=== PATIENT | female | born 1980 | race Caucasian/White ===

== ENCOUNTER 2024-12-01 15:10 | Emergency (ER) | payer BC, SELFPAY ==
[2024-12-01 15:20] VITALS: BP 154/94; PULSE 83; RESP 18; TEMP 36.3; O2SAT 100; BMI 21.5
--- OUTSIDE RECORDS SUMMARY | 2024-12-01 16:51 | XMS_ITS | Clinical Summary ---
Author Organization [facility] Address [address] [place] [id number] Care Team Providers Care Transportation Mechanic Name Role Phone [place] Primary Care Provider + Allergies No known active allergies Medications trimethoprim-sul famethoxazole 160-800 mg tabIndications:s kin and skin structure infection Take 1 Tablet by mouth two times daily for 7 days. 14 Tablet 11/30/2024 Active Encounters Date Type Department Care Team Description 11/30/2024 9:19 PM CDT - 11/30/2024 10:08 PM CDT Emergency [facility] [address] [place] [address] Vini Narayan PA Cellulitis and abscess of head (Primary Dx) Discharge Disposition: Home Self Care 11/30/2024 Travel from Last 3 Months Social History Tobacco Use Types Packs/Day Years Used Date Smoking Tobacco: Never Assessed Interpersonal Safety Answer Date Record ed Are you being hit, kicked, p ushed or yelled at (see row info)? No 11/30/2024 Interpersonal Safety Abuse 12 - 18 Not on file 11/30/2024 Interpersonal Safety Ambulatory Vulnerability No t on file 11/30/2024 Comments No Sex and Gender Information Value Date Recorded Sex Assigned at Female 11/30/2024 9:28 PM CDT Legal Sex Female 9:13 PM CDT Gender Identity Female 11/30/2024 9:28 PM CDT Sexual Orientation Straight 11/30/2024 9: 28 PM CDT Last Filed Vital Signs Vital Sign Reading Time Taken Comments Blood Pressure 144/106 11/30/2024 9:17 PM CDT Pulse 78 11/30/2024 9:17 PM CDT Temperature 36.8 C (98.3 F) 11/30/2024 9:17 PM CDT Respiratory Rate 20 11/30/2024 9:17 PM CDT Oxygen Saturation 99% 11/30/2024 9:17 PM CDT Inhaled Oxygen Concentration - - Weight 57 kg (125 lb 11.2 oz) 11/30/2024 9:17 PM CDT Height 162.6 cm (5' 4) 11/30/2024 9:17 PM CDT Body Mass Index 21.58 11/30/2024 9:17 PM CDT Plan of Treatment Not on file Procedures Procedure Name Priority Date/Time Associated Diagnosis Comments BEDSIDE US STUDY ARCHIVE Routine 11/30/2024 9:44 PM CDT from Last 3 Months Insurance SONU BOU[place]REAUX [id number] [facility] Care Teams Transportation Mechanic Relationship Specialty Start Date End Date [facility] Sonu Boudreaux [address] [place]ON[place] [id number] PCP - General 11/30/24
--- OUTSIDE RECORDS SUMMARY | 2024-12-01 16:51 | XMS_ITS | Continuity of Care Document ---
Author Organization [facility] Address [address] [place] [address] Phone Care Team Providers Care Shop Mechanic Name Role Phone Annabella Morales CNP Unavailable Unavailable Allergies, Adverse Reactions, Alerts Substance Reaction Status Criticality No Known Allergies Active No Inform ation Medications Medication Instructions Dosage Effective Dates (start - stop) Status Comments bupropion HCl XL 300 mg 24 hr tablet, extended release take 1 tablet by oral route every day 300 MG - Active Lamictal 200 mg tablet take 1 tablet by oral route every day 200 MG - Active doxepin 10 mg capsule take 1 capsule by oral route every day 10 MG - Active clonidine 0.2 mg/24 hr weekly transdermal patch apply 1 patch by transdermal route every week 1.00 patch - Active clonazepam 0.5 mg tablet take 2.5 (1.25MG) by oral route every day 1.25 MG - Active PRN gabapentin 300 mg capsule take 1 capsule by oral route 4 times every day begin with 1 capsule at bedtime x 3 then bid x 3 then tid 300 MG - Active Procedures Procedure Date No Show Visit Fee No Show Visit Fee Inject, Spine, Cerv/Thor, Epi/subarc w/i mg Guid Inject, Spine, Cerv/Thor, Epi/subarc w/i mg Guid Therapeutic Exercise Therapeutic Exercise No Show Visit Fee Manual Therapy Therapeutic Exercise No Show Visit Fee PT Eval - Low Complexity Manual Therapy Est Pt Eval 25 Min No Show Visit Fee Inject, Spine, Cerv/Thor, Epi/subarc w/i mg Guid Inject, Spine, Cerv/Thor, Epi/subarc w/i mg Guid Methylprednisolone Acetate-40 9 Est Pt Eval 25 Min No Show Visit Fee No Show Visit Fee Inject, Spine, Cerv/Thor, Epi/subarc w/i mg Guid Methylprednisolone Acetate-40 9 Inject, Spine, Cerv/Thor, Epi/subarc w/i mg Guid Psychiatric Diagnostic Evaluation Est Pt Eval 25 Min Advance Directives Directive Yes / No Effective Date File Name No Information Encounters Encounter Description Practice Location Reason(s) For Visit Diagnoses Date Provider Providers Copied on Encounter ANALI Streeter, [address], [place], [place], [id number], [place] tel:[phone] [facility] No Information 2 Ketola Bulloch. [address], [facility] [place], [id number], [place]. tel:[phone] Referring Provider: Sandra Spicer, [address], [place], [address] . tel:[phone] ANALI Streeter, [address], [place], [place], [address], [place] tel:[phone] [facility] No Information 2 Ketola Bulloch. [address], [facility], [address], [place]. tel:[phone] Referring Provider: Sandra Spicer, [address], [place], [address] . tel:[phone] [facility], [address], [place], [address], [place] tel:[phone] [facility] bilateral neck pain (chief complaint) Radiculopathy, cervical regionRadiculopathy , cervical region 2 [facility]. [address], [place], [place], [address], [place]. tel:[phone] Referring Provider: Artem Julien, [address], [place], [address]. tel:[phone] [facility], [address], [place], [place], [address], [place] tel:[phone] [facility] No Information 2 Wily Mcgill. [address], [place], [address], [place]. tel:[phone] Referring Provider: Artem Julien, [address], [place], [address]. tel:[phone] [facility], [address], [place], [place], [address], [place] tel:[phone] [facility] CervicalgiaRadiculo mercy, cervicothoracic region 2 Nayan Flores. [address], [place], [address], [place]. tel:[phone] Referring Provider: Sandra Spicer, [address], [place], [address] . tel:[phone] [facility], [address], [place], [place], [address], [place] tel:[phone] [facility] CervicalgiaRadiculo mercy, cervicothoracic region 2 Nayan Flores. [address], [place], [address], [place]. tel:[phone] Referring Provider: Sandra Spicer, [address], [place], [address] . tel:[phone] ANALI Streeter, [address], [place], [place], [address], [place] tel:[phone] [facility] No Information 2 Cora Ospina. [address], [place], [address], [place]. tel:[phone] Referring Provider: REFERRAL SELF, SUZANNA. ANALI Streeter, [address], [place], [address], [place] tel:[phone] [facility] CervicalgiaRadiculo mercy, cervicothoracic region 2 Shersindy Ospina. [address], [place], [place], [address], [place]. tel:[phone] Referring Provider: Sandra Spicer, [address], [place], [address] . tel:[phone] ANALI Streeter, [address], [place], [address], [place] tel:[phone] [facility] No Information 2 Nayan Flores. [address], [place], [address], [place]. tel:[phone] Referring Provider: REFERRAL SELF, SUZANNA. [facility], [address], [place], [place], [address], [place] tel:[phone] [facility] CervicalgiaRadiculo mercy, cervicothoracic region 2 Tracey Denson. [address], [place], [address], [place]. tel:[phone] Referring Provider: Janiya Webb, [address], [place], [address]. tel:[phone] Est Pt Eval 25 Min [facility], [address], [place], [place], [address], [place] tel:[phone] [facility] headache (chief complaint) Cervicalgia 2 Rian Tanner. [address], [place], [address], [place]. tel:[phone] Referring Provider: Ciro Modi, [address], [place], [address]. tel:[phone] [facility], [address], [place], [place], [address], [place] tel:[phone] [facility] No Information 9 [facility]. [address], [place], [address], [place]. tel:[phone] Referring Provider: REFERRAL SELF, SUZANNA. [facility], [address], [place], [place], [address], [place] tel:[phone] [facility] No Information 3-201 9 Ila Owusu. [address], [place], [place], [address], [place]. tel:[phone] Referring Provider: Umer Mcneil, [address], [place], [address] . tel:[phone] [facility], [address], [place], [address], [place] tel:[phone] [facility] bilateral neck pain (chief complaint) Other spondylosis with radiculopathy, cervical regionCervical disc disorder at C6-C7 level with radiculopathyOther spondylosis with radiculopathy, cervical regionCervical disc disorder at C6-C7 level with radiculopathy 9 Ila Owusu. [address], [place], [place], [address], [place]. tel:[phone] Referring Provider: SUZANNA PRAKASH. Est Pt Eval 25 Min ANALI Streeter, [address], [place], [address], [place] tel:[phone] [facility] headache (chief complaint) CervicalgiaRadiculo mercy, cervicothoracic regionOther spondylosis with radiculopathy, cervical regionCervical disc disorder at C6-C7 level with radiculopathyOther cerv disc degeneration, mid-cervical rgn, unsp level 9 Yassine Kothari. [address], [place], [address], [place]. tel:[phone] Referring Provider: Saniya Metzger, [address], [place], [address]. tel:[phone] ANALI Streeter, [address], [place], [address], [place] tel:[phone] [facility] No Information 9 Metzger Saniya. [address], [place], [address], [place]. tel:[phone] Referring Provider: Saniya Metzger, [address], [place], [address]. tel:[phone] ANALI Streeter, [address] [facility] [address], [place], [place], [address], [place] tel:[phone] [facility] No Information 9 Nayan Flores. [address] [place] [address], [place], [place], [address], [place]. tel:[phone] Referring Provider: Sandra Spicer, [address] [place] [address], [place], [address] . tel:[phone] [facility], [address] [facility] [facility] [address], [place], [address], [place] tel:[phone] [facility] back pain (chief complaint) Other spondylosis with radiculopathy, cervical regionOther cerv disc degeneration, mid-cervical rgn, unsp levelOther spondylosis with radiculopathy, cervical regionOther cerv disc degeneration, mid-cervical rgn, unsp level 9 Ila Owusu. [address], [place], [place], [address], [place]. tel:[phone] Referring Provider: LORI HOLLAND, SUZANNA. [facility], [address], [place], [place], [address], [place] tel:[phone] [facility] No Information 9 Ila Owusu. [address], [place], [place], [address], [place]. tel:[phone] Referring Provider: Umer Mcneil, [address], [place], [address] . tel:[phone] Psychiatric Diagnostic Evaluation [facility], [address], [place], [place], [address], [place] tel:[phone] [facility] Pain disorder with related psychological factorsMajor depressv disorder, recurrent severe w/o psych features 9 Betty Tillman [address], [place], [place], [address], [place]. tel:[phone] Referring Provider: Phillip Thorpe, [address], [place], [address] . tel:[phone] Est Pt Eval 25 Min [facility], [address], [place], [place], [address], [place] tel:[phone] [facility] bilateral neck pain (chief complaint) CervicalgiaRadiculo mercy, cervicothoracic region (C7-T1) 9 Ila Fisher. [address], [place], [place], [address], [place]. tel:[phone] Referring Provider: Phillip Thorpe, [address], [place], [address] . tel:[phone] Family History Family Member Type Diagnosis Age At Onset Mother Problem (finding) Depression Sister Problem (finding) ADD / ADHD Sister Problem (finding) Depression Payers Payer name Insurance type Covered republican ID Authoriza tion(s) No Information Social History Type Description Quantity Date Captured Comments Sex Female Smoking Status No Information Chief Complaint And Reason For Visit No Information Reason For Referral Reason For Referral No Information Plan Of Treatment Date Type Action Status Goal Tobacco cessation counseling completed Referral Referred To: Physical Therapy Ordered: Physical Therapy. Evaluate and treat ordered Referral Referred To: cervical epidural steroid injection Ordered: cervical epidural steroid injection C6-7 ordered History Of Present Illness Encounter Date Complaint History Of Prese nt Illness bilateral neck pain The symptoms are reported as being severe. The symptoms occur constantly. She states the symptoms are chronic. headache The problem is w orse. Location is frontal and occipital. The patient describes it as sharp, throbbing and aching. Symptom is aggravated by anxiety, bright lights and stress. Relieving factors include OTC meds. bilateral neck pain headache Pertinent negati ves include dizziness, fever, loss of consciousness, memory impairment, nausea, vertigo and vomiting. back pain Location of pain is neck. bilateral neck pain The symptoms are reported as being moderate. The symptoms occur constantly. The symptoms are described as Constant, getting worse. Aggravating factors include Daily activities. Relieving factors include Pain meds/drugs. Functional Status Date Functional Assessmen t No Information Instructions Date Instruction Virginia Freeman bry - Follow up in the c linic in 2-3 weeksif partial relief, repeat VIK in 4-5 weeksIf no pain relief, schedule bilateral occipital nerve block in 2-4 weeks Related to Radiculopathy, cervical region Assessments Type Assessment Date No Information Patient Care Teams Name Effective Dates (start - stop) Status Members No Information
[2024-12-01 17:02] LABS: Basophils Absolute Auto 0.01 K/uL (0.00-0.30); Basophils Percent Auto 0.1 % (0.0-3.0); Eosinophils Absolute Auto 0.08 K/uL (0.00-0.50); Eosinophils Percent Auto 1.1 % (0.0-7.0); Hematocrit 39.1 % (33.0-51.0); Hemoglobin* 12.8 gm/dL (12.0-16.0); Immature Granulocytes Abs Auto 0.01 K/uL (0.00-0.30); Immature Granulocytes Pct Auto 0.1 %; Lymphocytes Absolute Auto 1.84 K/uL (0.90-2.90); Lymphocytes Percent Auto 24.2 % (20-44); Mean Corpuscular HGB Conc 33 gm/dL (32-36); Mean Corpuscular Hemoglobin 30 pg (26-34); Mean Corpuscular Volume 91 fL (80-100); Monocytes Percent Auto 4.3 % (0.0-11.0); Neutrophils Absolute Auto 5.32 K/uL (1.7-7.0); Neutrophils Percent Auto 70.2 % (42.0-72.0); Platelet Count* 244 K/uL (140-440); RDW Coefficient of Variation % 12.1 % (11.5-15.5); Red Blood Count 4.29 m/uL (4.00-5.20); White Blood Count* 7.59 K/uL (4.50-11.00)
[2024-12-01 17:03] LABS: Slide Review Reflex No
[2024-12-01] MEDS: CLINDAMYCIN 600 MG/50 ML-D5W 600 MG/50 ML PIGGYBACK 100 MG IVPB (17:05)
[2024-12-01 17:29] LABS: Chloride* 105 mmol/L (96-114); Potassium* 4.1 mmol/L (3.6-5.1); Sodium* 138 mmol/L (135-149)
[2024-12-01 17:32] LABS: Anion Gap 5 mEq/L (7-15); Blood Urea Nitrogen* 8 mg/dL (5-24); Carbon Dioxide* 28 mmol/L (20-32); Creatinine* 0.8 mg/dL (0.5-1.5); Estimated Glomerular Filt Rate 94 ml/min
[2024-12-01 17:33] LABS: Calcium* 8.7 mg/dL (8.4-10.6); Glucose* 89 mg/dL (60-115)
--- NOTE | 2024-12-01 17:35 | ED_ITS ---
HPI - General Adult General Date Seen: 12/01/24 Chief complaint: Eye Problems Stated complaint: Swelling under left eye, swelling above quaker Time Seen by Provider: 12/01/24 16:09 Source: patient Mode of arrival: ambulatory Limitations: no limitations History of Present Illness HPI narrative: Patient is a 44-year-old female presenting to emergency department for concerns of swelling under her eye and benign to abscess to her left forehead. States 3 days ago she noticed a small bump on her left side of her forehead that has gradually grown. States she was able to squeeze a small well. At 1st she thought it was just a pimple. States it has been gradually getting bigger now she has swelling going underneath her left eye and her left forehead. Denies having symptoms like this before. She is a smoker but is not diabetic. Denies any pain with eye movement. She does have a headache but she states is localized to her left forehead. Denies any vision changes. Denies fevers, c hills, nausea, weakness, numbness. No other concerns noted. No pain within her eye. Related Data Home Medications ?Medication ?Instructions ?Recorded ?Confirmed bupropion HCl 300 mg 24 hr tablet, 300 mg PO DAILY 12/01/24 12/01/24 extended release (Wellbutrin XL) clonazepam 0.5 mg tablet 0.5 mg PO BID 12/01/24 12/01/24 dextroamphetamine-amphetamine 20 20 mg PO DAILY 12/01/24 12/01/24 mg tablet (Adderall) gabapentin 600 mg tablet 600 mg PO TID 12/01/24 12/01/24 venlafaxine 37.5 mg 37.5 mg PO DAILY 12/01/24 12/01/24 capsule,extended release 24 hr (Effexor XR) Previous Rx's ?Medication ?Instructions ?Recorded cefdinir 300 mg capsule 300 mg PO BID #10 caps 12/01/24 ondansetron 4 mg disintegrating 4 mg PO Q6H #20 tabs 12/01/24 tablet sulfamethoxazole 800 1 tab PO BID #10 tabs 12/01/24 mg-trimethoprim 160 mg tablet Allergies Allergy/AdvReac Type Severity Reaction Status Date / Time No Known Drug Allergies Allergy Verified 12/01/24 15:29 Review of Systems Status of ROS: Reports: 10 or more systems reviewed and unremarkable except as noted in History and below Exam Narrative: Exam Narrative: Const: Well-nourished, Well-developed, in mild distress Eyes: PERRL, no conjunctival injection, and symmetrical lids. Normal extraocular movements. HENT: Atraumatic external nose and ears. Moist mucous membranes. Neck: Symmetric, trachea midline, No thyromegaly. CVS: RRR, No murmurs or gallops. Peripheral pulses 2+ and equal in all extremities RESP: Unlabored respiratory effort. Clear to auscultation bilaterally. GI: Nontender/Nondistended, No rebound or guarding. MSK:Extremities w/o deformity, Normal Active ROM Skin: 1 cm fluctuant area to her left forehead with erythema, warmth and swelling noted to the forehead and going underneath her left eye. Eyelids do not appear to be involved Neuro: Normal Muscle tone, No focal neurological deficits. Psych: Awake, Alert, & Oriented x3. Appropriate mood and affect. Const: Vital Signs, click to edit/add: Vital Signs - 24 hr 12/01/24 15:20 Temperature 97.3 F L Pulse Rate [Right Pulse Oximeter] 83 Respiratory Rate 18 Blood Pressure [Ri ght Upper Arm] 154/94 H Pulse Oximetry 100 Oxygen Delivery Me thod Room Air Course Vital Signs Vital signs: Initial Vital Signs Temperature 97.3 F L 12/01/24 15:20 Temperature Source Temporal Artery Scan 12/01/24 15:20 Pulse Rate 83 12/01/24 15:20 Pulse Rhythm Regular 12/01/24 15:20 Pulse Strength 3+ Normal 12/01/24 15:20 Respiratory Rate 18 12/01/24 15:20 Blood Pressure 154/94 H 12/01/24 15:20 Blood Pressure Mean 114 H 12/01/24 15:20 Blood Pressure Position Sitting 12/01/24 15:20 Pulse Oximetry 100 12/01/24 15:20 Oxygen Delivery Method Room Air 12/01/24 15:20 Vital Signs Temperature 97.3 F L 12/01/24 15:20 Pulse Rate 83 12/01/24 15:20 Respiratory Rate 18 12/01/24 15:20 Blood Pressure 154/94 H 12/01/24 15:20 Pulse Oximetry 100 12/01/24 15:20 Oxygen Delivery Method Room Air 12/01/24 15:20 Temperature 97.3 F L 12/01/24 15:20 Pulse Rate 83 12/01/24 15:20 Respiratory Rate 18 12/01/24 15:20 Blood Pressure 154/94 H 12/01/24 15:20 Pulse Oximetry 100 12/01/24 15:20 Oxygen Delivery Method Room Air 12/01/24 15:20 Medications Administered Medications: Discontinued Medications Generic Name Dose Route Start Last Admin Trade Name Selvinq PRN Reason Stop Dose Admin Clindamycin Phosphate 600 mg in 50 mls @ 100 mls/hr 12/01/24 16:38 12/01/24 17:05 Clindamycin 600 Mg/50 Ml-D5w IVPB 12/01/24 17:07 100 mls/hr ONCE ONE Administration Medical Decision Making MDM Narrative Medical decision making narrative: Patient is a 44-year-old female presenting to the emergency department for an abscess. I did put ultrasound to the area and there is a very small abscess like area but it is too small to be drained. She does appear to have so she is cellulitis with this abscess but no signs of orbital cellulitis. No signs of cavernous venous thrombosis. This headache seems likely related to the infection as it is located at the same spot as the abscess. She does states she is very anxious. That probably is not helping with her headache. No other concerns. Will order clindamycin IV to cover for strep and staph and do a BMP and CBC. I do not believe head imaging is necessary as this is likely a skin infection only. Lab work shows no concerning findings. While she was in the room a small amount of drainage did come out and was collected for a wound culture. She is otherwise doing well at this time she is safe for discharge. Will discharge her on cefdinir and Bactrim to cover for staph Lab Data Labs: Lab Results 12/01/24 Range/Units 16:55 WBC 7.59 (4.50-11.00) K/uL RBC 4.29 (4.00-5.20) m/uL Hgb 12.8 (12.0-16.0) gm/dL Hct 39.1 (33.0-51.0) % MCV 91 (80-100) fL MCH 30 (26-34) pg MCHC 33 (32-36) gm/dL RDW Coeff of Peng 12.1 (11.5-15.5) % Plt Count 244 (140-440) K/uL Neut % (Auto) 70.2 (42.0-72.0) % Lymph % (Auto) 24.2 (20-44) % [place] % (Auto) 4.3 (0.0-11.0) % Eos % (Auto) 1.1 (0.0-7.0) % Baso % (Auto) 0.1 (0.0-3.0) % Neut # (Auto) 5.32 (1.7-7.0) K/uL Lymph # (Auto) 1.84 (0.90-2.90) K/uL [place] # (Auto) 0.30 (0.00-0.90) K/UL Eos # (Auto) 0.08 (0.00-0.50) K/uL Baso # (Auto) 0.01 (0.00-0.30) K/uL Abs Immat Gran (auto) 0.01 (0.00-0.30) K/uL Imm/Tot Granulo (auto) 0.1 % Sodium 138 (135-149) mmol/L Potassium 4.1 (3.6-5.1) mmol/L Chloride 105 (96-114) mmol/L Carbon Dioxide 28 (20-32) mmol/L Anion Gap 5 L (7-15) mEq/L BUN 8 (5-24) mg/dL Creatinine 0.8 (0.5-1.5) mg/dL Estimated Creat Clear 78.30 Estimated GFR 94 ml/min Glucose 89 (60-115) mg/dL Calcium 8.7 (8.4-10.6) mg/dL Discharge Plan Discharge Clinical Impression: Abscess, Cellulitis of face Patient Disposition: Home, Self-Care Condition: Stable Instructions: Cellulitis (ED), Abscess (ED) Additional Instructions: Take Tylenol and ibuprofen for your pain. Return to emergency department for new or worsening symptoms. Take the antibiotics as prescribed. You should start noticing improvement in the next couple days. He started having pain with eye movement return immediately for re-evaluation. Also return he start developing any double vision, fevers, worsening nausea and vomiting or any other concerning symptoms. Prescriptions: New ondansetron 4 mg tablet,disintegrating 4 mg PO Q6H Qty: 20 0RF sulfamethoxazole-trimethoprim 800-160 mg tablet 1 tab PO BID Qty: 10 0RF cefdinir 300 mg capsule 300 mg PO BID Qty: 10 0RF No Action venlafaxine [Effexor XR] 37.5 mg capsule,extended release 24hr 37.5 mg PO DAILY bupropion HCl [Wellbutrin XL] 300 mg tablet extended release 24 hr 300 mg PO DAILY gabapentin 600 mg tablet 600 mg PO TID dextroamphetamine-amphetamine [Adderall] 20 mg tablet 20 mg PO DAILY clonazepam 0.5 mg tablet 0.5 mg PO BID Follow Up/Referrals: Provider,Not a Local [Primary Care Provider] - Stand Alone [facility] Instructions
== END 2024-12-01 18:13 | disposition home or self-care (01) ==
PROVIDERS: Emergency Provider Student in an Organized Health Care Education/Training Program
DX: L03.211 Cellulitis of face (principal)
CPT/HCPCS: 36415; 80048; 85025; 87070; 87186; 96365; 99284; J0736